=== PATIENT | male | born 1950 | race Caucasian/White ===

== ENCOUNTER → 2020-12-14 15:11 | Outpatient (CLI) | payer MEDICARE, OTHER, SELFPAY ==
--- NOTE | 2020-12-14 15:25 | CT_ITS ---
PROCEDURE: CT ABDOMEN PELVIS WO CON CLINICAL INDICATION: include chest Stomach pain COMPARISON: No exams were available for comparison TECHNIQUE: Axial images obtained with sagittal and coronal reformats. All CT scans at the facility use one or more dose reduction, viz: automated exposure control, ma/kV adjustment per patient size (including targeted exams where dose is matched to indication, i.e. head), or iterative reconstruction technique. FINDINGS: LOWER THORAX: No acute finding ABDOMEN & PELVIS: The liver, spleen, and pancreas have unremarkable appearance. Minimal nodular enlargement of the left adrenal gland noted nonspecific. Nonobstructing 3 mm stone is present in the upper pole of the left kidney. No radiopaque gallstones. Atherosclerotic changes are present involving the abdominal aorta. There is minimal dilatation of the infrarenal abdominal aorta at 2.6 cm transverse and the coming 2.1 cm the mid common dilated again at 3.1 cm. The aorta measures 2.2 cm at the bifurcation. Proximal common iliacs demonstrates calcific plaque without significant dilatation. There is a mild amount of retained colonic feces. No intestinal obstruction or free air. Unremarkable appendix. No evidence of diverticulitis. There is coarse right paracentral prostate calcification. No abnormal fluid collections. There is a small umbilical and a small left inguinal hernia containing fat. There is partial fusion of the SI joints. IMPRESSION: 1. No acute abdominal or pelvic findings. 2. Abdominal aortic aneurysm as described above measuring up to 3.1 cm. No evidence of acute retroperitoneal hemorrhage. Dictated by: Anam Cottrell MD 12/14/2020 17:46 Anam Cottrell MD in [facility] 12/14/2020 17:46
--- NOTE | 2020-12-14 15:43 | CT_ITS ---
PROCEDURE: CT CHEST WO CON CLINICAL INDICATION: abdominal pain History of lung cancer COMPARISON: No exams were available for comparison TECHNIQUE: Axial images obtained with sagittal and coronal reformats. All CT scans at the facility use one or more dose reduction, viz: automated exposure control, ma/kV adjustment per patient size (including targeted exams where dose is matched to indication, i.e. head), or iterative reconstruction technique. FINDINGS: HEART AND MEDIASTINAL STRUCTURES: Coronary artery calcification. No mediastinal mass or adenopathy LUNGS AND PLEURAL SPACES: Unremarkable. BONY STRUCTURES: No acute bony abnormalities apparent. UPPER ABDOMEN: Unremarkable. ADDITIONAL FINDINGS: No other significant abnormalities. IMPRESSION: Dictated by: Anam Cottrell MD 12/14/2020 17:32 Anam Cottrell MD in [facility] 12/14/2020 17:32
[2020-12-14 15:45] LABS: Basophils # 0.1 K/mm3 (0-0.2); Basophils % 0.5 % (0.1-2.0); Eosinophils % 0.1 % (0.1-12.0); Hematocrit 46.8 % (42.0-52.0); Hemoglobin 15.6 g/dL (14.1-18.0); Lymphocytes # 1.6 K/mm3 (0.7-4.5); Lymphocytes % 10.7 % (10-50); Mean Corpuscular HGB Conc 33.2 g/dL (31.8-35.4); Mean Corpuscular Hemoglobin 30.8 pg (27.0-31.2); Mean Corpuscular Volume 92.9 fl (80-94); Mean Platelet Volume 7.9 fl (7.4-10.4); Monocytes # 0.5 K/mm3 (0.1-1.0); Monocytes % 3.5 % (1.7-9.3); Neutrophils # 12.7 K/mm3 (1.8-7.8); Neutrophils % 85.2 % (37.0-80.0); Platelet Count 250 K/mm3 (142-424); Red Blood Count 5.04 M/mm3 (4.60-6.20); Red Cell Distribution Width 15.1 % (11.5-17.5); White Blood Count 14.9 K/mm3 (4.8-10.8)
[2020-12-14 15:47] LABS: Alanine Aminotransferase 27 U/L (12-78); Albumin Level 4.1 g/dl (3.5-5.0); Albumin/Globulin Ratio 1.3 (1.1-1.8); Alkaline Phosphatase 85 U/L (38-126); Anion Gap 15.5 mEq/L (5-15); Aspartate Amino Transferase 22 U/L (17-59); Bilirubin,Total 0.3 mg/dl (0.2-1.3); Blood Urea Nitrogen 25 mg/dl (9-20); Carbon Dioxide 24 mmol/L (22.0-30.0); Chloride 103 mmol/L (98-107); Estimated Glomerular Filt Rate 66 ml/min (>60); GFR (African American) 80 ML/MIN (>60); Globulin 3.2 g/dL (1.3-3.2); Glucose 110 mg/dl (74-100); Potassium 4.5 mmoL/L (3.5-5.1); Sodium 138 mmol/L (136-145); Total Protein,Serum 7.3 g/dl (6.3-8.2)
[2020-12-14 15:52] LABS: MANUAL DIFFERENTIAL MANUAL DIFFERENTIAL (MANUAL DIFF)
[2020-12-14 16:24] LABS: Lipase 43 U/L (23-300)
[2020-12-14 16:32] LABS: Lymphocytes % 15 % (10-50); Monocytes % 12 % (2-9); Neutrophils % 72 % (42-76); Total Cells Counted 100
[2020-12-14 16:33] LABS: Anisocytosis 1+; Platelet Estimate Normal
== END ==
PROVIDERS: Visit Provider Family Medicine
DX: R10.9 Unspecified abdominal pain (principal); R19.8 Other specified symptoms and signs involving the digestive system and abdomen; R14.0 Abdominal distension (gaseous); Z85.118 Personal history of other malignant neoplasm of bronchus and lung
CPT/HCPCS: 36415; 71250; 74176; 80053; 83690; 85007; 85025